=== PATIENT | female | born 1945 | race Caucasian/White ===

== ENCOUNTER 2018-10-24 11:45 | Inpatient (IN) | payer OTHER ==
[~2018-10-24] VITALS: Ht 154.9 cm; Wt 41.8 kg
[2018-10-24] MEDS ORDERED: SODIUM CHLORIDE 0.9% 1L BAG IV* STA (12:19)
[2018-10-24] MEDS ORDERED: CEFEPIME 2GM/50 ML (PMX) 50 ML IVPB STA (12:19)
[2018-10-24] MEDS ORDERED: VANCOMYCIN 1 GM (PMX) 250 ML IVPB ONE (12:30)
[2018-10-24] MEDS ORDERED: GLUC1CAP48 PO (12:48)
[2018-10-24] MEDS ORDERED: LEVO75TA5 PO (12:49)
[2018-10-24] MEDS ORDERED: HYDR30CR92 RC (12:51)
[2018-10-24] MEDS ORDERED: ENOXAPARIN 40 MG/0.4 ML SYG SC ONE (13:30)
--- NOTE | 2018-10-24 17:58 | ERD ---
ER Documentation Chief Complaint Chief Complaint pt bib family with c/o fever, being altered in [facility] dx pneumonia HPI This is a 72-year-old female was sent in by her family because of a fever today. She recently had pneumonia and an admission at [facility] about 7 to 10 days ago. Family says that the past couple days she has not been eating as well and has had a slight cough, no GI symptoms, no rash no complaints of pain, patient is a very poor historian. ROS All systems reviewed and are negative except as per history of present illness. Medications Home Meds Reported Medications Hydrocortisone (Proctocream-Hc) 30 Gm Cream.gm., 30 GM RC BID 10/24/18 Levothyroxine Sodium* (Levothyroxine Sodium*) 75 Mcg Tablet, 75 MCG PO BEFORE BREAKFAST, #30 TAB 10/24/18 Gluc 2KCL/Chondr/Kyle Hy/Hy Ac (GLUCOSAMINE & CHONDROITIN CAP) 1 Each Capsule, 2 EACH PO DAILY, CAP 10/24/18 Allergies Allergies: Coded Allergies: No Known Allergy (Unverified , 10/24/18) PMhx/Soc Medical and Surgical Hx: pt denies Surgical Hx Hx Miscellaneous Medical Probl: Yes (THYROID, PNA) Hx Alcohol Use: No Hx Substance Use: No Hx Tobacco Use: No Smoking Status: Never smoker FmHx Family History: No coronary disease Physical Exam Vitals Vital Signs Date Temp Pulse Resp B/P (MAP) Pulse Ox O2 O2 Flow FiO2 Time Delivery Rate 10/24/18 97 18 122/65 99 Room Air 16:09 (84) 10/24/18 98.9 15:07 10/24/18 91 20 136/72 97 Room Air 14:18 (93) 10/24/18 102.5 128 24 109/60 98 11:53 (76) Physical Exam Const: Well-developed, well-nourished Head: Atraumatic, normocephalic Eyes: Normal Conjunctiva, PERRLA, EOMI, normal sclera, no nystagmus ENT: Normal External Ears, Nose and Mouth, moist mucus membranes. Neck: Full range of motion. No meningismus, no lymphadenopathy. Resp: Clear to auscultation bilaterally, no wheezing, rhonchi, rales Cardio: Regular rate and rhythm, no murmurs, S1 S2 present Abd: Soft, non tender x 4, non distended. Normal bowel sounds, no guarding or rebound, no pulsitile abdominal masses or bruits Skin: No petechiae or rashes, no ecchymosis , no maculopapular rash Back: No midline or flank tenderness Ext: No cyanosis, or edema, FROM x 4, normal inspection, neurovascula rly intact x 4 Neur: Lethargic but arousable STR 5/5 x 4, sensation intact x 4, no focal findings, cerebellum intact] Psych: Normal Mood and Affect Result Diagram: 10/24/18 1159 10/24/18 1159 Results 24 hrs Laboratory Tests Test 10/24/18 11:59 10/24/18 12:28 10/24/18 14:55 10/24/18 14:59 White Blood Count 12.0 10^3/ul Red Blood Count 5.04 10^6/ul Hemoglobin 13.7 g/dl Hematocrit 42.4 % Mean Corpuscular 84.1 fl Volume Mean Corpuscular 27.2 pg Hemoglobin Mean Corpuscular 32.3 g/dl Hemoglobin Concent Red Cell 16.1 % Distribution Width Platelet Count 136 10^3/UL Mean Platelet 11.6 fl Volume Immature 1.100 % Granulocytes % Neutrophils % 87.2 % Segmented 75 % Neutrophils % (Manual) Band Neutrophils % 21 % (Manual) Lymphocytes % 6.1 % Lymphocytes % 1 % (Manual) Reactive 1 % Lymphocytes % (Manual) Monocytes % 4.6 % Monocytes % 2 % (Manual) Eosinophils % 0.1 % Basophils % 0.9 % Nucleated Red 0.0 /100WBC Blood Cells % Immature 0.130 10^3/ul Granulocytes # Neutrophils # 10.5 10^3/ul Neutrophils # 9.3 10^3/ul (Manual) Band Neutrophils # 2.5 10^3/ul Lymphocytes 0.1 10^3/ul (Manual) Lymphocytes # 0.7 10^3/ul Reactive 0.1 10^3/ul Lymphocytes # Monocytes # 0.6 10^3/ul Monocytes # 0.2 10^3/ul (Manual) Eosinophils # 0.0 10^3/ul Basophils # 0.1 10^3/ul Nucleated Red 0.0 10^3/ul Blood Cells # Platelet Estimate NORMAL Polychromasia 1+ Poikilocytosis 1+ Anisocytosis 1+ Microcytosis 1+ Prothrombin Time 13.5 Sec Prothrombin Time 1.1 Ratio INR International 1.02 Normalized Ratio Activated 29.[address] Time Sodium Level 136 mmol/L Potassium Level 3.8 mmol/L Chloride Level 103 mmol/L Carbon Dioxide 22 mmol/L Level Anion Gap 11 Blood Urea 16 mg/dl Nitrogen Creatinine 0.69 mg/dl Est Glomerular mL/min Filtrat Rate mL/min Glucose Level 165 mg/dl Calcium Level 9.3 mg/dl Total Bilirubin 0.6 mg/dl Direct Bilirubin 0.00 mg/dl Indirect Bilirubin 0.6 mg/dl Aspartate Amino 28 IU/L Transf (AST/SGOT) Alanine 19 IU/L Aminotransferase ( ALT/SGPT) Alkaline 133 IU/L Phosphatase Troponin I 0.662 ng/ml Total Protein 7.0 g/dl Albumin 3.3 g/dl Globulin 3.70 g/dl Albumin/Globulin 0.89 Ratio POC Venous Lactate 1.5 mmol/L Urine Color YELLOW Urine Clarity CLEAR Urine pH 6.0 Urine Specific 1.016 [place] Urine Ketones TRACE mg/dL Urine Nitrite NEGATIVE mg/dL Urine Bilirubin NEGATIVE mg/dL Urine Urobilinogen NEGATIVE mg/dL Urine Leukocyte NEGATIVE John/ul Esterase Urine Microscopic 1 /HPF RBC Urine Microscopic 2 /HPF WBC Urine Mucus FEW /HPF Urine Hemoglobin NEGATIVE mg/dL Urine Glucose NEGATIVE mg/dL Urine Total 1+ mg/dl Protein Bedside Urine pH 6.0 (LAB) Bedside Urine 2+ Protein (LAB) Bedside Urine Negative Glucose (UA) Bedside Urine Trace Ketones (LAB) Bedside Urine Trace-intact Blood Bedside Urine Negative Nitrite (LAB) Bedside Urine Negative Leukocyte Esterase (L Test 10/24/18 16:28 Lactic Acid Level 0.9 mmol/L Current Medications Medications Dose Sig/Bhavana Start Time Status Last (Trade) Ordered Route PRN Stop Time Admin Dose Reason Admin Sodium 1,200 ml BOLUS OVER 2 10/24/18 DC 10/24/18 Chloride HOURS STAT 12:19 10/24/18 12:32 (NS) IV* 12:21 Cefepime HCl 50 ml @ ONCE STAT 10/24/18 DC 10/24/18 100 mls/hr IVPB 12:19 10/24/18 12:33 12:48 Vancomycin 250 ml @ ONCE ONCE 10/24/18 DC 10/24/18 HCl 125 mls/hr IVPB 12:30 10/24/18 14:07 14:29 Enoxaparin 40 mg ONCE ONCE 10/24/18 DC 10/24/18 Sodium SC 13:30 10/24/18 14:08 (Lovenox) 13:31 Procedures/MDM Ordering MD: CHRISTIANO JARA DO Location: E/R Room/Bed: PROCEDURE: XR Chest. CLINICAL INDICATION: Chest pain TECHNIQUE: Single frontal view of the chest was obtained COMPARISON: None FINDINGS: The heart is enlarged. The thoracic aorta is calcified. The lungs are clear. There is no pleural effusion or pneumothorax. RPTAT: AA IMPRESSION: Mild cardiomegaly. Calcified aorta consistent with atherosclerotic disease. .Anselmo Rose MD, MD Date Time Electronically viewed and signed by .Anselmo Rose MD, on 10/24/2018 13:13 .S/ CC: CHRISTIANO JARA DO [id number] EKG: Rate/Rhythm: Normal sinus rhythm, inverted T waves laterally, RSR pattern QRS, ST, QT: NORMAL GA, QRS, QT] Impression: Abnormal EKG Patient has a normal lactic acid level. She has a mild white blood count elevation but has a bandemia of 21. Patient may have a viral illness the x-ray does not show any pneumonia and she does have only 2 white cells in her urine but she still could have a UTI. We will admit for antibiotic therapy and observation she received cefepime and vancomycin Reevaluation at 1730 the patient is more alert with her fever being much lower Departure Diagnosis: Primary Impression: Fever Fever type: unspecified Qualified Codes: R50.9 - Fever, unspecified Condition: Stable CHRISTIANO JARA DO October 24, 2018 17:56
[2018-10-24] MEDS ORDERED: SOD CHLORIDE 0.9% 1,000 ML IV SCH ×2 (18:10→18:30)
[2018-10-24] MEDS ORDERED: ZOLPIDEM 5 MG TAB PO PRN (18:30)
[2018-10-24] MEDS ORDERED: ONDANSETRON 4 MG INJ IV PRN (18:30)
[2018-10-24] MEDS ORDERED: ACETAMINOPHEN 325 MG TAB PO PRN (18:30)
[2018-10-24 19:50] VITALS: BP 126/62; PULSE 95; RESP 20
[2018-10-24 20:00] VITALS: PULSE 89
[2018-10-24 20:53] VITALS: BP 120/59; PULSE 87; RESP 18
[2018-10-24 22:56] VITALS: Ht 154.9 cm; Wt 41.8 kg
[2018-10-24 23:41] VITALS: BP 121/63; PULSE 95; RESP 17
[2018-10-25] VITALS (12 sets, daily range): BP systolic 96–110; BP diastolic 53–59; PULSE 65–80; RESP 17–18
[2018-10-25] MEDS ORDERED: LEVOTHYROXINE 75 MCG TAB ONE (05:31)
[2018-10-25] MEDS: LEVOTHYROXINE 75 MCG TAB PO SCH (05:57)
[2018-10-25] MEDS ORDERED: POTASSIUM CHLORIDE (SR) 20 MEQ TAB PO STA (08:55)
[2018-10-25] MEDS ORDERED: CEFTRIAXONE 1 GM/50 ML (PMX) 50 ML IVPB SCH (09:00)
[2018-10-25] MEDS ORDERED: VANCOMYCIN 1 GM (PMX) 250 ML IVPB SCH (09:00)
[2018-10-25] MEDS ORDERED: VANCOMYCIN IV PER PHARMACY XX SCH (09:00)
--- NOTE | 2018-10-25 09:09 | HP ---
DATE OF ADMISSION: 10/24/2018 CHIEF COMPLAINT: Fever and altered mentation. HISTORY OF PRESENT ILLNESS: A 72-year-old female with recent history of pneumonia about 7 to 10 days prior to admission, was brought in by family members with complaint of fever and altered mental stat us. The patient denies any chest pain. No shortness of breath. No cough. No abdominal pain, nause a, or vomiting. No genitourinary symptoms. She was quite lethargic at the time of my visit. Initia l evaluation revealed white blood cell count of 12,000 with 21% bands. Chest x-ray was unremarkable. Urinalysis was negative. 4 out of 4 blood cultures are growing gram-positive cocci in pairs. PAST MEDICAL HISTORY: Hypothyroidism. MEDICATIONS PRIOR TO ADMISSION: 1. Levothyroxine. 2. Hydrocortisone cream. 3. Glucosamine. SOCIAL HISTORY: Patient lives at home. She denies tobacco or alcohol use. PHYSICAL EXAMINATION: GENERAL: Well-developed, well-nourished female who is quite lethargic and does not feel well. VITAL SIGNS: Stable. She is afebrile. HEENT: Extraocular muscles intact. Pupils equal, round, reactive to light bilaterally. Sclerae are anicteric. Oropharynx is clear and moist. NECK: Supple, no JVD, no carotid bruits. LUNGS: Clear to auscultation bilaterally. CARDIAC: Regular rate and rhythm. No murmurs, rubs or gallops. ABDOMEN: Soft, nontender, nondistended, normoactive bowel sounds. EXTREMITIES: No clubbing, cyanosis, or edema. NEUROLOGICAL: Grossly nonfocal repeat: White blood cell count is 8.6, hemoglobin is 11.3, platelet count is 131, potassium is low at 3.2. Initial troponin was 0.66. PLAN: Admit to telemetry. Continue IV vancomycin. Repeat serum troponin, resume selective home med ications. Dictated By: KERRY SCHAFFER/LUZMARIA Conf#: [id number] DID#: [id number]
[2018-10-25] MEDS: ACETAMINOPHEN 325 MG TAB PO PRN (10:10)
[2018-10-25] MEDS: POTASSIUM CHLORIDE 30 MEQ in SOD CHLORIDE 0.9% 1,000 ML IV SCH ×2 (10:52→23:02)
--- NOTE | 2018-10-25 11:41 | CONS ---
Assessment/Plan Assessment/Plan Assessment/Plan (Daily) Asessment Troponinelevation downtrending of uncertain etiology, may be nonspecific Nonspecific EKG changes Frailty Bandemia recent PNA Plan: venous duplex echo aspirin May require ID input Consultation Date/Type/Reason Admit Date/Time October 24, 2018 at 18:11 Type of Consult Cardiology Date/Time of Note DATE: 10/25/18 TIME: 11:38 Hx of Present Illness admitted with fever and AMS found to have elevated troponins and bandemia Subjective hx not possible: pt non-verbal Respiratory: no complaints Cardiovascular: no complaints Gastrointestinal: no complaints Musculoskeletal: no complaints Skin: no complaints Neurologic: no complaints Past Medical History Medical History: hypertension, hypothyroid Home Meds Reported Medications Hydrocortisone (Proctocream-Hc) 30 Gm Cream.gm., 30 GM RC BID 10/24/18 Levothyroxine Sodium* (Levothyroxine Sodium*) 75 Mcg Tablet, 75 MCG PO BEFORE BREAKFAST, #30 TAB 10/24/18 Gluc 2KCL/Chondr/Kyle Hy/Hy Ac (GLUCOSAMINE & CHONDROITIN CAP) 1 Each Capsule, 2 EACH PO DAILY, CAP 10/24/18 Medications Current Medications Zolpidem Tartrate (Ambien) 5 mg HS PRN PO INSOMNIA; Start 10/24/18 at 18:30 Acetaminophen (Tylenol Tab) 650 mg Q4 PRN PO fever or pain Last administered on 10/25/18at 10:10; Admin Dose 650 MG; Start 10/24/18 at 18:30 Levothyroxine Sodium (Synthroid) 75 mcg BEFORE BREAKFAST PO Last administered on 10/25/18at 05:57; Admin Dose 75 MCG; Start 10/25/18 at 07:00 Vancomycin HCl (Vanco Iv Per Pharmacy) VANCOMYCIN PER PHARMACY PER PROTOCOL XX ; Start 10/25/18 at 09:00 Vancomycin/Sodium Chloride 250 ml @ 125 mls/hr Q24H IVPB ; Start 10/25/18 at 14:00 Potassium Chloride 30 meq/ Sodium Chloride 1,015 ml @ 75 mls/hr [id number] IV Last administered on 10/25/18at 10:52; Admin Dose 75 MLS/HR; Start 10/25/18 at 09:30 Allergies: Coded Allergies: No Known Allergies (Verified Allergy, Unknown, 10/24/18) Family History Significant Family History: hypertension Social History Smoking Status: Never smoker Exam/Review of Systems Vital Signs Vitals Vital Signs Date Temp Pulse Resp B/P (MAP) Pulse Ox O2 O2 Flow FiO2 Time Delivery Rate 10/25/18 98.2 78 18 110/58 97 Room Air 11:23 (75) Intake and Output 10/24/18 10/24/18 10/25/18 1515:00 23:00 07:00 IntakeIntake Total 700 ml OutputOutput Total 3 ml BalanceBalance 697 ml Exam Constitutional: frail Head: normocephalic, atraumatic Neck: supple Respiratory: clear to auscultation Cardiovascular: regular rate and rhythm Gastrointestinal: soft Musculoskeletal: nl extremities to inspection Extremities: normal pulses Labs Result Diagram: 10/25/18 0509 10/25/18 0508 Results 24hrs Laboratory Tests Test 10/24/18 11:59 10/24/18 12:28 10/24/18 14:55 10/24/18 14:59 White Blood Count 12.0 H Red Blood Count 5.04 Hemoglobin 13.7 Hematocrit 42.4 Mean Corpuscular 84.1 Volume Mean Corpuscular 27.2 L Hemoglobin Mean Corpuscular 32.3 Hemoglobin Concent Red Cell Distribution 16.1 H Width Platelet Count 136 L Mean Platelet Volume 11.6 H Immature Granulocytes 1.100 H % Neutrophils % 87.2 H Segmented Neutrophils 75 % (Manual) Band Neutrophils % 21 H (Manual) Lymphocytes % 6.1 L Lymphocytes % 1 L (Manual) Reactive Lymphocytes 1 H % (Manual) Monocytes % 4.6 Monocytes % (Manual) 2 Eosinophils % 0.1 Basophils % 0.9 Nucleated Red Blood 0.0 Cells % Immature Granulocytes 0.130 H # Neutrophils # 10.5 H Neutrophils # 9.3 H (Manual) Band Neutrophils # 2.5 H Lymphocytes (Manual) 0.1 L Lymphocytes # 0.7 L Reactive Lymphocytes 0.1 H # Monocytes # 0.6 Monocytes # (Manual) 0.2 L Eosinophils # 0.0 Basophils # 0.1 Nucleated Red Blood 0.0 Cells # Platelet Estimate NORMAL Polychromasia 1+ Poikilocytosis 1+ Anisocytosis 1+ Microcytosis 1+ Prothrombin Time 13.5 Prothrombin Time 1.1 Ratio INR International 1.02 Normalized Ratio Activated 29.2 Partial Thromboplast Time Sodium Level 136 Potassium Level 3.8 Chloride Level 103 Carbon Dioxide Level 22 Anion Gap 11 Blood Urea Nitrogen 16 Creatinine 0.69 Est Glomerular Filtrat Rate mL/min Glucose Level 165 Calcium Level 9.3 Total Bilirubin 0.6 Direct Bilirubin 0.00 Indirect Bilirubin 0.6 Aspartate Amino 28 Transf (AST/SGOT) Alanine 19 Aminotransferase (ALT /SGPT) Alkaline Phosphatase 133 H Troponin I 0.662 *H Total Protein 7.0 Albumin 3.3 Globulin 3.70 H Albumin/Globulin 0.89 Ratio POC Venous Lactate 1.5 Urine Color YELLOW Urine Clarity CLEAR Urine pH 6.0 Urine Specific 1.016 [place] Urine Ketones TRACE A Urine Nitrite NEGATIVE Urine Bilirubin NEGATIVE Urine Urobilinogen NEGATIVE Urine Leukocyte NEGATIVE Esterase Urine Microscopic RBC 1 Urine Microscopic WBC 2 Urine Mucus FEW A Urine Hemoglobin NEGATIVE Urine Glucose NEGATIVE Urine Total Protein 1+ H Bedside Urine pH 6.0 (LAB) Bedside Urine Protein 2+ H (LAB) Bedside Urine Glucose Negative (UA) Bedside Urine Ketones Trace H (LAB) Bedside Urine Blood Trace-intact H Bedside Urine Nitrite Negative (LAB) Bedside Urine Negative Leukocyte Esterase (L Test 10/24/18 16:28 10/25/18 05:08 10/25/18 05:09 10/25/18 08:38 Lactic Acid Level 0.9 Sodium Level 141 Potassium Level 3.2 L Chloride Level 111 H Carbon Dioxide Level 20 L Anion Gap 10 Blood Urea Nitrogen 14 Creatinine 0.63 Est Glomerular Filtrat Rate mL/min Glucose Level 98 # Calcium Level 8.5 White Blood Count 8.6 # Red Blood Count 4.15 L Hemoglobin 11.3 L Hematocrit 35.6 L Mean Corpuscular 85.8 Volume Mean Corpuscular 27.2 L Hemoglobin Mean Corpuscular 31.7 L Hemoglobin Concent Red Cell Distribution 16.4 H Width Platelet Count 131 L Mean Platelet Volume 12.8 H Immature Granulocytes 0.800 H % Neutrophils % Segmented Neutrophils 76 % (Manual) Band Neutrophils % 7 H (Manual) Lymphocytes % Lymphocytes % 9 L (Manual) Reactive Lymphocytes 1 H % (Manual) Monocytes % Monocytes % (Manual) 6 Eosinophils % Basophils % Myelocytes % (Manual) 1 H Nucleated Red Blood 0.0 Cells % Immature Granulocytes 0.070 H # Neutrophils # Neutrophils # 6.6 (Manual) Band Neutrophils # 0.6 Lymphocytes (Manual) 0.7 L Lymphocytes # Reactive Lymphocytes 0.0 # Monocytes # Monocytes # (Manual) 0.5 Eosinophils # Basophils # Myelocytes # 0.0 Nucleated Red Blood Cells # Platelet Estimate NORMAL Anisocytosis 1+ Troponin I 0.362 *H Medications Medications Current Medications Zolpidem Tartrate (Ambien) 5 mg HS PRN PO INSOMNIA; Start 10/24/18 at 18:30 Acetaminophen (Tylenol Tab) 650 mg Q4 PRN PO fever or pain Last administered on 10/25/18at 10:10; Admin Dose 650 MG; Start 10/24/18 at 18:30 Levothyroxine Sodium (Synthroid) 75 mcg BEFORE BREAKFAST PO Last administered on 10/25/18at 05:57; Admin Dose 75 MCG; Start 10/25/18 at 07:00 Vancomycin HCl (Vanco Iv Per Pharmacy) VANCOMYCIN PER PHARMACY PER PROTOCOL XX ; Start 10/25/18 at 09:00 Vancomycin/Sodium Chloride 250 ml @ 125 mls/hr Q24H IVPB ; Start 10/25/18 at 14:00 Potassium Chloride 30 meq/ Sodium Chloride 1,015 ml @ 75 mls/hr [id number] IV Last administered on 10/25/18at 10:52; Admin Dose 75 MLS/HR; Start 10/25/18 at 09:30 ARMANDO LEW MD October 25, 2018 11:41
[2018-10-25] MEDS: ASPIRIN 81 MG TAB PO SCH (13:02)
[2018-10-25] MEDS: VANCOMYCIN 750 MG (PMX) 250 ML IVPB SCH (14:03)
[2018-10-26] VITALS (11 sets, daily range): BP systolic 101–114; BP diastolic 60–95; PULSE 59–104; RESP 17–19
[2018-10-26] MEDS: LEVOTHYROXINE 75 MCG TAB PO SCH (08:12)
[2018-10-26] MEDS: ASPIRIN 81 MG TAB PO SCH (08:12)
--- NOTE | 2018-10-26 09:42 | PN ---
Date/Time of Note Date/Time of Note DATE: 10/26/18 TIME: 09:39 Subjective More alert. No complaint of chest pain or shortness of breath. No abdominal pain. Objective Vitals Vital Signs Date Temp Pulse Resp B/P (MAP) Pulse Ox O2 O2 Flow FiO2 Time Delivery Rate 10/26/18 59 08:01 10/26/18 98.0 18 110/62 98 07:33 (78) 10/25/18 Room Air 15:04 Intake and Output 10/25/18 10/25/18 10/26/18 1515:00 23:00 07:00 IntakeIntake Total 1405 ml 100 ml BalanceBalance 1405 ml 100 ml Clear to auscultation bilaterally Regular rate and rhythm Soft nontender nondistended normoactive bowel sounds No edema Nonfocal Results Result Diagram: 10/25/18 0509 10/25/18 0508 Medications Medications Current Medications Zolpidem Tartrate (Ambien) 5 mg HS PRN PO INSOMNIA; Start 10/24/18 at 18:30 Acetaminophen (Tylenol Tab) 650 mg Q4 PRN PO fever or pain Last administered on 10/25/18 10:10; Admin Dose 650 MG; Start 10/24/18 at 18:30 Levothyroxine Sodium (Synthroid) 75 mcg BEFORE BREAKFAST PO Last administered on 10/26/18 08:12; Admin Dose 75 MCG; Start 10/25/18 at 07:00 Vancomycin HCl (Vanco Iv Per Pharmacy) VANCOMYCIN PER PHARMACY PER PROTOCOL XX ; Start 10/25/18 at 09:00 Vancomycin/Sodium Chloride 250 ml @ 125 mls/hr Q24H IVPB Last administered on 10/25/18 14:03; Admin Dose 125 MLS/HR; Start 10/25/18 at 14:00 Potassium Chloride 30 meq/ Sodium Chloride 1,015 ml @ 75 mls/hr [id number] IV Last administered on 10/25/18 10:52; Admin Dose 75 MLS/HR; Start 10/25/18 at 09:30 Aspirin (Aspirin) 81 mg DAILY PO Last administered on 10/26/18 08:12; Admin Dose 81 MG; Start 10/25/18 at 12:00 VTE Prophylaxis Risk score (from Nsg)>0 risk: 4 SCD applied (from Nsg): Yes Lines/Catheters IV Catheter Type: Saline Lock Allen in Place: No Assessment/Plan Assessment/Plan 72-year-old female with gram-positive cocci bacteremia Hyperkalemia Recent pneumonia Malnutrition of moderate degree Elevated troponin Continue IV vancomycin Check final blood culture results Cardiology follow-up Check 2D echo I left a message with family member KERRY CARREON MD October 26, 2018 09:42
[2018-10-26] MEDS: POTASSIUM CHLORIDE 30 MEQ in SOD CHLORIDE 0.9% 1,000 ML IV SCH (12:34)
--- NOTE | 2018-10-26 13:50 | CONS ---
Consultation Date/Type/Reason Admit Date/Time October 25, 2018 at 16:11 Initial Consult Date Type of Consult Cardiology Date/Time of Note DATE: 10/26/18 TIME: 13:48 24 HR Interval Summary Free Text/Dictation Asessment Troponinelevation downtrending of uncertain etiology, may be nonspecific Nonspecific EKG changes Frailty gram + bacteremia recent PNA echo pending consider ID input Exam/Review of Systems Vital Signs Vitals Vital Signs Date Temp Pulse Resp B/P (MAP) Pulse Ox O2 O2 Flow FiO2 Time Delivery Rate 10/26/18 98.0 75 18 101/95 98 11:49 (97) 10/25/18 Room Air 15:04 Intake and Output 10/25/18 10/25/18 10/26/18 1515:00 23:00 07:00 IntakeIntake Total 1405 ml 100 ml BalanceBalance 1405 ml 100 ml Exam Constitutional: frail Cardiovascular: regular rate and rhythm Gastrointestinal: soft Extremities: No edema Labs Result Diagram: 10/25/18 0509 10/25/18 0508 Medications Medications Current Medications Zolpidem Tartrate (Ambien) 5 mg HS PRN PO INSOMNIA; Start 10/24/18 at 18:30 Acetaminophen (Tylenol Tab) 650 mg Q4 PRN PO fever or pain Last administered on 10/25/18at 10:10; Admin Dose 650 MG; Start 10/24/18 at 18:30 Levothyroxine Sodium (Synthroid) 75 mcg BEFORE BREAKFAST PO Last administered on 10/26/18at 08:12; Admin Dose 75 MCG; Start 10/25/18 at 07:00 Vancomycin HCl (Vanco Iv Per Pharmacy) VANCOMYCIN PER PHARMACY PER PROTOCOL XX ; Start 10/25/18 at 09:00 Vancomycin/Sodium Chloride 250 ml @ 125 mls/hr Q24H IVPB Last administered on 10/25/18at 14:03; Admin Dose 125 MLS/HR; Start 10/25/18 at 14:00 Potassium Chloride 30 meq/ Sodium Chloride 1,015 ml @ 75 mls/hr [id number] IV Last administered on 10/25/18at 10:52; Admin Dose 75 MLS/HR; Start 10/25/18 at 09:30 Aspirin (Aspirin) 81 mg DAILY PO Last administered on 10/26/18at 08:12; Admin Dose 81 MG; Start 10/25/18 at 12:00 Miscellaneous Information (*Rx Drug Level Order Reminder*) VANCO TROUGH 10/27 @ 1,300 1300 ONCE XX ; Start 10/27/18 at 13:00; Stop 10/27/18 at 13:01 MARIANNE OSEGUERA MD October 26, 2018 13:50
[2018-10-26] MEDS: VANCOMYCIN 750 MG (PMX) 250 ML IVPB SCH (15:16)
[2018-10-27] VITALS (13 sets, daily range): BP systolic 98–125; BP diastolic 48–74; PULSE 70–106; RESP 17–20
[2018-10-27] MEDS: POTASSIUM CHLORIDE 30 MEQ in SOD CHLORIDE 0.9% 1,000 ML IV SCH ×2 (02:06→15:38)
[2018-10-27] MEDS: LEVOTHYROXINE 75 MCG TAB PO SCH (07:11)
[2018-10-27] MEDS: ASPIRIN 81 MG TAB PO SCH (09:06)
[2018-10-27] MEDS ORDERED: ACET325T33 PO (09:58)
--- NOTE | 2018-10-27 10:57 | RADRPT ---
Echocardiogram Report Patient Name: ERIC PARIKHLPatient ID: [id number] : 1945 (72y 10m)Study Date: 10/25/2018 1:04:25 PM Gender: FAccession #: [id number] Tech: Vimal Hamilton [facility] Location: [facility] Ref.Physician: KERRY CARREON Height(Cm): BSA: Weight(Kg): Quality: AdequateAccount #: Procedures: Echocardiographic Report: Transthoracic echocardiogram with complete 2D, M-Mode, and doppler examination. Indications: Chest Pain. Measurements: 2D/M Mode Doppler Measurement Value Normal Range Measurement Value Normal Range LVIDd 2D 4.1 [ 3.8 - 5.2 ] cm AV Peak Tyron 1.4 [ 100.0 - 170.0 ] cm/s ec LVIDs 2D 2.7 [ 2.2 - 3.5 ] cm AV Peak PG 8.0 [ 2.0 - 9.0 ] mmHg LVPWd 2D 1.5 [ 0.6 - 0.9 ] cm LVOT Peak Ty[place] 1.0 [ 70.0 - 110.0 ] cm/se c IVSd 2D 1.5 [ 0.6 - 0.9 ] cm LVOT Peak PG 4.0 [ 2.0 - 6.0 ] mmHg AoR Diam 2D 2.7 [ 2.3 - 3.1 ] cm MV E Peak Ty[place] 0.9 [ 60.0 - 130.0 ] cm/se c EDV 2D 72.5 [ 46.0 - 106.0 ] ml MV A Peak [place] 1.5 [ 100.0 - 120.0 ] cm/s ec ESV 2D 27.0 [ 14.0 - 42.0 ] ml MV E/A 0.6 [ 0.8 - 1.5 ] ratio EF 2D 62.8 [ 54.0 - 74.0 ] percent MV PHT 104.0 [ 20.0 - 100.0 ] msec LA Dimen 2D 4.0 [ 2.7 - 3.8 ] cm MV Peak Ty[place] 1.8 [ 60.0 - 130.0 ] cm/se c MV Peak PG 13.0 [ 1.0 - 10.0 ] mmHg MV Mean Tyron 1.0 cm/sec MV Mean PG 5.0 mmHg MV Decel Time 254 [ 104 - 258 ] msec MV Decel [place] 4 MV E/A 0.6 [ 0.8 - 1.5 ] ratio MV PHT Peak [place] 1.4 cm/sec MV VTI 53.7 cm MVA PHT 2.1 [ 2.0 - 4.0 ] cm2 TR Peak Tyron 2.5 [ 100.0 - 280.0 ] cm/s ec TR Peak PG 25.0 mmHg RVSP 28.0 [ 10.0 - 36.0 ] mmHg Findings: Left Ventricle: Normal left ventricular systolic function. Normal left ventricular cavity size. Moderate concentric left ventricular hypertrophy. Ejection fraction is visually estimated at 60 %. Tissue Doppler/Mitral Doppler indices are indeterminate in this study due to the presence of mitral stenosis. Right Ventricle: Normal right ventricular size. Normal right ventricular systolic function. Left Atrium: The left atrium is normal in size. Right Atrium: The right atrium is normal in size. Mitral Valve: Posterior mitral valve leaflet appears severely thickened. Mild mitral leaflet calcification. Mild mitral annular calcification. Trace mitral regurgitation. Mild mitral stenosis. MeanPG 5.00 mmHg. Echogenic structure is seen on the mitral valve highly suspicious for vegetation. Aortic Valve: No hemodynamically significant aortic stenosis by doppler. Aortic cusps appear mildly calcified. Tricuspid Valve: Normal appearance of the tricuspid valve. Estimated peak PA systolic pressure 28 mmHg. There is trace tricuspid regurgitation. Pericardium: Normal pericardium with no significant pericardial effusion. Aorta: Normal aortic root. IVC: Normal size and normal respiratory collapse consistent with normal right atrial pressure. Conclusions: Normal left ventricular systolic function. Normal left ventricular cavity size. Moderate concentric left ventricular hypertrophy. Ejection fraction is visually estimated at 60 %. Tissue Doppler/Mitral Doppler indices are indeterminate in this study due to the presence of mitral stenosis. Normal right ventricular size. Normal right ventricular systolic function. The left atrium is normal in size. The right atrium is normal in size. Trace mitral regurgitation. Mild mitral stenosis. Echogenic structure is seen on the mitral valve highly suspicious for vegetation. No hemodynamically significant aortic stenosis by doppler. There is trace tricuspid regurgitation. Normal pericardium with no significant pericardial effusion. Primary hospitalist notified. Electronically Signed By: Eliud Dixon 2018-10-27 10:56:50 PDT
--- NOTE | 2018-10-27 11:13 | CONS ---
Assessment/Plan Assessment/Plan Hospital Course (Demo Recall) Gram-positive bacteremia Abnormal mitral valve structure on echocardiogram, concerning for endocarditis Preserved ejection fraction Sepsis Mildly elevated troponin, trending down -Echocardiogram with thickened and calcified mitral valve with echodense structure concerning for endocarditis. There is no evidence of significant regurgitation. -Given bacteremia and abnormal mitral valve structure, if no contraindication, would treat with antibiotics for endocarditis -Continue aspirin therapy, would start statin therapy if no contraindication Consultation Date/Type/Reason Admit Date/Time October 25, 2018 at 16:11 Initial Consult Date Type of Consult Cardiology Date/Time of Note DATE: 10/27/18 TIME: 11:10 24 HR Interval Summary Free Text/Dictation Denies chest pain, shortness of breath Exam/Review of Systems Vital Signs Vitals Vital Signs Date Temp Pulse Resp B/P (MAP) Pulse Ox O2 O2 Flow FiO2 Time Delivery Rate 10/27/18 104 08:01 10/27/18 98.2 18 125/74 95 Room Air 07:12 (91) Intake and Output 10/26/18 10/26/18 10/27/18 1515:00 23:00 07:00 IntakeIntake Total 700 ml 200 ml BalanceBalance 700 ml 200 ml Exam Constitutional: alert (Following commands), frail Head: normocephalic Respiratory: other (Coarse breath sounds bilaterally, no wheezing) Cardiovascular: regular rate and rhythm, other (s1s2) Gastrointestinal: soft, non-tender, bowel sounds Extremities: other (No significant edema) Labs Result Diagram: 10/25/18 0509 10/27/18 0513 Results 24hrs Laboratory Tests Test 10/27/18 05:13 Sodium Level 142 Potassium Level 4.1 Chloride Level 115 H Carbon Dioxide Level 21 Anion Gap 6 Blood Urea Nitrogen 9 Creatinine 0.58 Est Glomerular Filtrat Rate mL/min Glucose Level 104 Calcium Level 8.3 L Medications Medications Current Medications Zolpidem Tartrate (Ambien) 5 mg HS PRN PO INSOMNIA; Start 10/24/18 at 18:30 Acetaminophen (Tylenol Tab) 650 mg Q4 PRN PO fever or pain Last administered on 10/25/18at 10:10; Admin Dose 650 MG; Start 10/24/18 at 18:30 Levothyroxine Sodium (Synthroid) 75 mcg BEFORE BREAKFAST PO Last administered on 10/27/18at 07:11; Admin Dose 75 MCG; Start 10/25/18 at 07:00 Vancomycin HCl (Vanco Iv Per Pharmacy) VANCOMYCIN PER PHARMACY PER PROTOCOL XX ; Start 10/25/18 at 09:00 Vancomycin/Sodium Chloride 250 ml @ 125 mls/hr Q24H IVPB Last administered on 10/26/18at 15:16; Admin Dose 125 MLS/HR; Start 10/25/18 at 14:00 Potassium Chloride 30 meq/ Sodium Chloride 1,015 ml @ 75 mls/hr [id number] IV Last administered on 10/27/18at 02:06; Admin Dose 75 MLS/HR; Start 10/25/18 at 09:30 Aspirin (Aspirin) 81 mg DAILY PO Last administered on 10/27/18at 09:06; Admin Dose 81 MG; Start 10/25/18 at 12:00 Miscellaneous Information (*Rx Drug Level Order Reminder*) VANCO TROUGH 10/27 @ 1,300 1300 ONCE XX ; Start 10/27/18 at 13:00; Stop 10/27/18 at 13:01 Eliud Dixon DO October 27, 2018 11:13
[2018-10-27] MEDS ORDERED: LIDOCAINE 1% (MPF) 5 ML VIAL SC ONE (11:30)
[2018-10-27] MEDS ORDERED: VANCOMYCIN 1 GM 250 ML IVPB SCH (16:00)
--- NOTE | 2018-10-27 17:25 | CONS ---
DATE OF ADMISSION: 10/25/2018 DATE OF CONSULTATION: 10/27/2018 TYPE OF CONSULTATION: Infectious disease. REASON FOR CONSULTATION: Antibiotic management. HISTORY OF PRESENT ILLNESS: Ronel Stone is a 72-year-old, patient of Dr. Abhi Carreon. The patient w as brought in by family with fever. She had recently been hospitalized in [facility], [place] for 7 to 1 0 days, but over the last few days, has not been eating well and has had a slight cough. She was toshia ated for pneumonia about 7 to 10 days prior to admission and she also has altered mental status on ad mission and was quite lethargic. Her white cells were 12,000 with 21% bands. Chest x-ray was unrema rkable. Four out of 4 blood cultures are growing gram-positive cocci in pairs which turned out to be group B strep. Her past problems also include hypothyroidism. She is on medication for that. PAST MEDICAL HISTORY: As outlined. FAMILY HISTORY: Noncontributory. SOCIAL HISTORY: She does not smoke, drink or abuse drugs. ALLERGIES: NONE TO PENICILLIN, SULFA OR FOODS. MEDICATIONS: Per chart. REVIEW OF SYSTEMS: As per HPI. PHYSICAL EXAMINATION: GENERAL: She is a well-developed elderly female who is lethargic and does not feel well, but is in n o acute distress. VITAL SIGNS: Stable. She is afebrile. SKIN: Without generalized rash. HEENT: Within normal limits. NECK: Supple. LYMPH NODES: None palpable. CHEST: Decreased breath sounds at the bases. HEART: Without murmur or gallop. Without rubs. ABDOMEN: Soft, nontender without organosplenomegaly or masses. EXTREMITIES: Without cyanosis, clubbing or edema. RECTAL AND GENITAL: Deferred. NEUROLOGIC: No focal neurological abnormality. HOSPITAL COURSE: Her white count on admission was 8.6, hemoglobin 11.3, platelet count 131, potassiu m 3.2, troponin 0.66. The patient was seen by Dr. Zimmerman in consultation. She had altered men kelly status, found to have elevated troponins and shift to the left. Her blood cultures are growing g roup B strep as noted. She is currently on vancomycin, although she can be switched to ceftriaxone w hich is something we will probably end up doing. Her white count on 10/25/2018 was 8.6. Chest x-ray : Mild cardiomegaly. The patient was seen by Dr. Robledo on the 10/26/2018. The patient was noted to be very frail. Echocardiogram with thickened and calcified mitral valve with structure conc erning for endocarditis. There is no evidence of significant regurgitation. Given bacteremia and ab normal mitral structure, I would treat with antibiotics for endocarditis. Continue aspirin. We will start statin therapy with no contraindication. We are going to probably switch her over to Rocephin a gram q.24 and treat her for approximately 6 weeks for endocarditis. I will dictate my findings to Dr. Carreon and to the aforementioned early morning. Dictated By: SARAH GILLIAM MD, JD/LUZMARIA Conf#: [id number] DID#: [id number] CC: ABHI CARREON MD;*EndCC*
[2018-10-27] MEDS ORDERED: CEFTRIAXONE 1 GM/50 ML (PMX) 50 ML IVPB SCH (17:30)
--- NOTE | 2018-10-27 19:10 | DS ---
DATE OF ADMISSION: 10/25/2018 DATE OF DISCHARGE: 10/27/2018 DISCHARGE DIAGNOSES: 1. Streptococcus bacteremia. 2. Elevated troponin of uncertain etiology. 3. Chronic debilitation. 4. Recent pneumonia. 5. Malnutrition of moderate degree. HOSPITAL COURSE: A 72-year-old female with recent pneumonia who was brought into the Emergency Room for altered mental status and subjective fevers. The patient was found to have gram-positive bacteremia. Blood cultures grew strep agalactia group B. This was sensitive to cephalosporins, penicillin and vancomycin. The patient received IV vancomycin during that hospitalization. The patient was also noted to have an elevated troponin. She was seen in consultation by cardiology group. This was found to be nonspecific. A 2D echo was ordered. findings were consistent for MV endocarditis. She was seen by Dr Holden.. The patient is quite frail and required skilled facility placement. [facility] I ordered IV Rocephin for 6 weeks. She requires physical therapy and rehabilitation as well. picc line will be placed prior to discharge. Her daughter was notified. MEDICATIONS ON DISCHARGE: 1. Tylenol. 2. Rocephin 1 gram daily x6 weeks. 3. Levothyroxine 75 mcg p.o. daily. Dictated By: KERRY CARREON MD SK/NTS Conf#: [id number] DID#: [id number] CC: KERRY CARREON MD;*EndCC* MTDD
[2018-10-27] MEDS ORDERED: ATORVASTATIN 20 MG TAB PO SCH (21:00)
[2018-10-27] MEDS: LACTOBACILLUS RHAMNOSUS CAP PO SCH (21:28)
[2018-10-28] VITALS (9 sets, daily range): BP systolic 102–118; BP diastolic 55–66; PULSE 63–88; RESP 18–20
[2018-10-28] MEDS: POTASSIUM CHLORIDE 30 MEQ in SOD CHLORIDE 0.9% 1,000 ML IV SCH ×2 (05:10→11:22)
[2018-10-28] MEDS: LEVOTHYROXINE 75 MCG TAB PO SCH (06:12)
[2018-10-28] MEDS: ACETAMINOPHEN 325 MG TAB PO PRN ×2 (06:19→11:33)
[2018-10-28] MEDS: ASPIRIN 81 MG TAB PO SCH (07:53)
[2018-10-28] MEDS: LACTOBACILLUS RHAMNOSUS CAP PO SCH (07:54)
[2018-10-28] MEDS ORDERED: LACT1CAP28 PO (10:46)
[2018-10-28] MEDS ORDERED: ATOR20TA65 PO (10:46)
[2018-10-28] MEDS ORDERED: CEFT1PIG2 IVPB (10:46)
--- NOTE | 2018-10-28 14:12 | CONS ---
Assessment/Plan Assessment/Plan Hospital Course (Demo Recall) Patient is lying comfortably in bed no fevers overnight she is status post PICC line placement Antimicrobials Rocephin Microbiology blood culture grew strep Physical examination: This is a fragile chronically ill-appearing elderly woman who is in no distress. Head atraumatic normocephalic neck is supple chest rise symmetrical breath sounds diminished bases heart S1-S2 abdomen soft bowel sounds present extremities without cyanosis Assessment: 1. Mitral valve endocarditis 2. Strep bacteremia Plan: Patient is stable status post PICC line, pending discharge on IV Rocephin for 6 weeks Consultation Date/Type/Reason Admit Date/Time October 25, 2018 at 16:11 Initial Consult Date Type of Consult id Date/Time of Note DATE: 10/28/18 TIME: 14:11 Exam/Review of Systems Exam Vitals Vital Signs Date Temp Pulse Resp B/P (MAP) Pulse Ox O2 O2 Flow FiO2 Time Delivery Rate 10/28/18 63 12:01 10/28/18 97.8 18 102/55 97 Room Air 11:38 (71) Intake and Output 10/27/18 10/27/18 10/28/18 1515:00 23:00 07:00 IntakeIntake Total 700 ml 1365 ml OutputOutput Total 3 ml BalanceBalance 700 ml 1362 ml Results Result Diagram: 10/25/18 0509 10/27/18 0513 Results 24hrs Laboratory Tests Test 10/27/18 17:43 10/28/18 05:01 Bedside Glucose 97 Medications Medication Current Medications Zolpidem Tartrate (Ambien) 5 mg HS PRN PO INSOMNIA; Start 10/24/18 at 18:30 Acetaminophen (Tylenol Tab) 650 mg Q4 PRN PO fever or pain Last administered on 10/28/18at 11:33; Admin Dose 650 MG; Start 10/24/18 at 18:30 Levothyroxine Sodium (Synthroid) 75 mcg BEFORE BREAKFAST PO Last administered on 10/28/18at 06:12; Admin Dose 75 MCG; Start 10/25/18 at 07:00 Potassium Chloride 30 meq/ Sodium Chloride 1,015 ml @ 75 mls/hr [id number] IV Last administered on 10/28/18at 11:22; Admin Dose 75 MLS/HR; Start 10/25/18 at 09:30 Aspirin (Aspirin) 81 mg DAILY PO Last administered on 10/28/18 07:53; Admin Dose 81 MG; Start 10/25/18 at 12:00 Atorvastatin Calcium (Lipitor) 20 mg HS PO Last administered on 10/27/18at 21:28; Admin Dose 20 MG; Start 10/27/18 at 21:00 Ceftriaxone Sodium 50 ml @ 100 mls/hr Q24H IVPB Last administered on 10/27/18 17:50; Admin Dose 100 MLS/HR; Start 10/27/18 at 17:30 Lactobacillus Acidophilus/ Rhamnosus (Culturelle) 1 cap BID PO Last administered on 10/28/18at 07:54; Admin Dose 1 CAP; Start 10/27/18 at 21:00 CASIMIRO GARRETT NP October 28, 2018 14:12
--- NOTE | 2018-10-28 15:34 | CONS ---
Assessment/Plan Assessment/Plan Hospital Course (Demo Recall) Gram-positive bacteremia Abnormal mitral valve structure on echocardiogram, concerning for endocarditis Preserved ejection fraction Sepsis Mildly elevated troponin, trending down -Echocardiogram with thickened and calcified mitral valve with echodense structure concerning for endocarditis. There is no evidence of significant regurgitation. -Patient being treated for endocarditis -Continue aspirin and statin therapy as tolerated -DC planning Consultation Date/Type/Reason Admit Date/Time October 25, 2018 at 16:11 Initial Consult Date Type of Consult Cardiology Date/Time of Note DATE: 10/28/18 TIME: 15:32 24 HR Interval Summary Free Text/Dictation Denies shortness of breath, cough Exam/Review of Systems Vital Signs Vitals Vital Signs Date Temp Pulse Resp B/P (MAP) Pulse Ox O2 O2 Flow FiO2 Time Delivery Rate 10/28/18 97.6 83 18 110/66 92 Room Air 15:23 (81) Intake and Output 10/27/18 10/27/18 10/28/18 1515:00 23:00 07:00 IntakeIntake Total 700 ml 1365 ml OutputOutput Total 3 ml BalanceBalance 700 ml 1362 ml Exam Constitutional: alert (Following commands, no apparent distress) Head: normocephalic Respiratory: other (Coarse breath sounds bilaterally, no wheezing) Cardiovascular: regular rate and rhythm (S1-S2 heard) Gastrointestinal: soft, non-tender, bowel sounds Extremities: edema (Trace) Labs Result Diagram: 10/25/18 0509 10/27/18 0513 Results 24hrs Laboratory Tests Test 10/27/18 17:43 10/28/18 05:01 Bedside Glucose 97 Medications Medications Current Medications Zolpidem Tartrate (Ambien) 5 mg HS PRN PO INSOMNIA; Start 10/24/18 at 18:30 Acetaminophen (Tylenol Tab) 650 mg Q4 PRN PO fever or pain Last administered on 10/28/18at 11:33; Admin Dose 650 MG; Start 10/24/18 at 18:30 Levothyroxine Sodium (Synthroid) 75 mcg BEFORE BREAKFAST PO Last administered on 10/28/18at 06:12; Admin Dose 75 MCG; Start 10/25/18 at 07:00 Potassium Chloride 30 meq/ Sodium Chloride 1,015 ml @ 75 mls/hr [id number] IV Last administered on 10/28/18at 11:22; Admin Dose 75 MLS/HR; Start 10/25/18 at 09:30 Aspirin (Aspirin) 81 mg DAILY PO Last administered on 10/28/18at 07:53; Admin Dose 81 MG; Start 10/25/18 at 12:00 Atorvastatin Calcium (Lipitor) 20 mg HS PO Last administered on 10/27/18at 21:28; Admin Dose 20 MG; Start 10/27/18 at 21:00 Ceftriaxone Sodium 50 ml @ 100 mls/hr Q24H IVPB Last administered on 10/27/18at 17:50; Admin Dose 100 MLS/HR; Start 10/27/18 at 17:30 Lactobacillus Acidophilus/ Rhamnosus (Culturelle) 1 cap BID PO Last administered on 10/28/18at 07:54; Admin Dose 1 CAP; Start 10/27/18 at 21:00 Eliud Dixon DO October 28, 2018 15:33
== END 2018-10-28 16:20 | DRG 871 ==
LOC: E/R 11:45 → 6WM 18:11 → INTOOBSV 18:11 → OBSVTOIN 10-25 16:11
PROVIDERS: ADMIT Internal Medicine; ATTEND Internal Medicine
DX: A41.9 Sepsis, unspecified organism (principal); G93.41 Metabolic encephalopathy; I38 Endocarditis, valve unspecified; E44.0 Moderate protein-calorie malnutrition; Z68.1 Body mass index [BMI] 19.9 or less, adult; E87.5 Hyperkalemia; E03.9 Hypothyroidism, unspecified
CPT/HCPCS: 36415; 36569; 71045; 76937; 80048; 80053; 80202; 81001; 81003; 82962; 83605; 84484; 85025; 85610; 85730; 87086; 87400; 93005; 93306; 93970; 96372; 96374; 96375; 97162; 99217; G0378; J0692; J0696; J1650; J3370; J3480; J7030